=== PATIENT | female | born 1960 | race Caucasian/White ===

== ENCOUNTER → 2018-04-19 | Outpatient (CLI) | payer BC | LOC: COL.RAD 04-18 09:45 | DX: N30.21 Other chronic cystitis with hematuria (principal); Z90.5 Acquired absence of kidney ==

== ENCOUNTER → 2019-09-10 | Outpatient (CLI) | payer BC | LOC: COL.RAD 07:42 | DX: Z01.812 Encounter for preprocedural laboratory examination (principal); R25.1 Tremor, unspecified; Z82.69 Family history of other diseases of the musculoskeletal system and connective tissue | CPT/HCPCS: A9585 ==

== ENCOUNTER → 2020-03-18 | Outpatient (CLI) | payer BC | LOC: COL.LAB 09:20 | DX: Z11.59 Encounter for screening for other viral diseases (principal) ==

== ENCOUNTER → 2020-12-26 | Outpatient (CLI) | payer BC ==
[2020-12-26 20:43] LABS: CLOSTRIDIUM DIFF A/B NEG; CLOSTRIDIUM DIFF A/B INTERP NonToxigenic C.diff
== END ==
LOC: COL.LAB 18:42
PROVIDERS: Physician Assistant
DX: R19.7 Diarrhea, unspecified (principal)